=== PATIENT | female | born 1950 | race Caucasian/White ===

== ENCOUNTER → 2017-03-03 | Outpatient (CLI) | payer OTHER ==
[~2017-03-03] MED LIST: ABAT1INJ INJ; BETH25TA3 PO; BISA10SU8 PR; BUSP15TA PO; CYMB60CA PO; DIATRIZOATE MEGLUM/DIATRIZOATE SOD 120 ML BTL (for RAD DIAG) RECTAL ONE; DILT60TA33 PO; DOCU1CAP39 PO; E.E.200S PO; FOLI1 PO; FOLI1TAB PO; HYDR-2768 PO; IRON27TA PO; LISI-363 PO; LORTA10 PO; METH25IN13 SC; POTA-243 PO; PROT40TA PO; REGL10TA5 PO; RIVA10 PO; TRAM50 PO; TRAV0.00 EACH EYE; VITA5000 PO; VITA500T49 PO
--- NOTE | 2017-03-03 12:36 | RADRPT ---
EXAM DATE/TIME: 03/03/2017 10:45 [place] COMPARISON: ABDOMEN KUB ONLY, February 28, 2014, 8:14. ABDOMEN FLAT & UPRIGHT, February 25, 2014, 9:58. INDICATIONS : Abdominal pain and distention, evaluate for obstruction FLUORO TIME: 1.8 minutes IMAGE COUNT: 21 CONTRAST: 1. [facility] MEDICAL HISTORY : arthritis SURGICAL HISTORY : Cholecystectomy. Hysterectomy. bilat hip ENCOUNTER: Initial ACUITY: >1 year PAIN SCORE: 10/10 LOCATION: Bilateral abdomen FINDINGS: Preliminary film shows bilateral hip prostheses. Dilated air-filled colon is again seen. This is unch anged from prior abdominal radiographs. Under fluoroscopic guidance a Gastrografin enema was performed with free flow of contrast to the ceca l tip. Contrast flows in a retrograde fashion through the rectum and sigmoid colon without delay. Sigmoid co smiley is normal diameter. Descending colon is moderately distended. No focal narrowing is identified. C ontrast flows without delay into the descending colon and then in the right lateral decubitus positio n into the transverse colon and ascending colon. Moderate to severe distention of the ascending colon and transverse colon. No fixed narrowing identified. Post evacuation radiographs show moderate amount of residual contrast. CONCLUSION: Moderate to severe colonic distention again noted. No evidence of obstruction. Contra st flows to the cecum. Jeovany Le MD on March 03, 2017 at 12:31 Board Certified Radiologist. This report was verified electronically.
== END ==
LOC: HRAD 10:20
PROVIDERS: ATTEND Internal Medicine Gastroenterology
DX: R93.8 Abnormal findings on diagnostic imaging of other specified body structures (principal)
CPT/HCPCS: 74270; Q9963